=== PATIENT | female | born 1990 | race Two or more races ===

== ENCOUNTER 2017-09-13 13:02 | Emergency (ER) | payer OTHER ==
[~2017-09-13] VITALS: Ht 160 cm; Wt 65.8 kg
[2017-09-13 13:02] VITALS: BP 112/78
[2017-09-13] MEDS ORDERED: IBUPROFEN 400 MG TABLET ONE (13:45)
[2017-09-13] MEDS ORDERED: IBUPROFEN 400 MG TABLET PO ONE (14:00)
== END 2017-09-13 13:53 | disposition home or self-care (01) ==
LOC: ER 13:06
DX: R05 Cough (principal); J02.9 Acute pharyngitis, unspecified
CPT/HCPCS: 87880; 99284; A4606; Z7610; 86403-TC

== ENCOUNTER 2018-02-11 14:40 | Emergency (ER) | payer OTHER ==
[~2018-02-11] VITALS: Ht 160 cm; Wt 61.2 kg
[2018-02-11 14:46] VITALS: BP 119/74
== END 2018-02-11 15:58 | disposition home or self-care (01) ==
LOC: ER 14:42
DX: B35.4 Tinea corporis (principal); R09.82 Postnasal drip
CPT/HCPCS: 84703-TC; A4606; Z7610

== ENCOUNTER 2018-02-15 15:09 | Emergency (ER) | payer OTHER ==
[~2018-02-15] VITALS: Ht 160 cm; Wt 61.2 kg
[2018-02-15 15:09] VITALS: BP 123/65
== END 2018-02-15 16:20 | disposition home or self-care (01) ==
LOC: ER 15:10
DX: J02.9 Acute pharyngitis, unspecified (principal)
CPT/HCPCS: A4606; Z7610

== ENCOUNTER 2018-03-14 14:38 | Emergency (ER) | payer OTHER ==
[~2018-03-14] VITALS: Ht 160 cm; Wt 63.5 kg
[2018-03-14 14:38] VITALS: BP 120/70
== END 2018-03-14 15:30 | disposition home or self-care (01) ==
LOC: ER 14:39
DX: B35.4 Tinea corporis (principal)
CPT/HCPCS: 99283; A4606; Z7610

== ENCOUNTER 2018-05-31 17:52 | Emergency (ER) | payer OTHER ==
--- NOTE | 2018-05-31 19:05 | NUR ---
CALLED PATIENTS NAME THREE TIMES, NO RESPONSE. WILL TRY AGAIN AT A LATER TIME
--- NOTE | 2018-05-31 20:17 | NUR ---
CALLED PATIENTS NAME THREE TIMES, NO RESPONSE. WILL TRY AGAIN AT A LATER TIME
== END 2018-05-31 20:18 | disposition left against medical advice (07) ==
LOC: ER 17:53
DX: Z53.21 Procedure and treatment not carried out due to patient leaving prior to being seen by health care provider (principal)

== ENCOUNTER 2019-05-07 12:13 | Emergency (ER) | payer OTHER ==
[~2019-05-07] VITALS: Ht 160 cm; Wt 61.2 kg
[2019-05-07 12:31] VITALS: BP 118/71
== END 2019-05-07 13:24 | disposition home or self-care (01) ==
LOC: ER 12:13
DX: J01.90 Acute sinusitis, unspecified (principal); J30.9 Allergic rhinitis, unspecified; J06.9 Acute upper respiratory infection, unspecified

== ENCOUNTER 2021-06-18 20:12 | Emergency (ER) | payer OTHER ==
[~2021-06-18] VITALS: Ht 160 cm; Wt 61.2 kg
[2021-06-18 21:16] VITALS: BP 134/85
[2021-06-18] MEDS ORDERED: IBUP-1955 PO (21:39)
[2021-06-18] MEDS ORDERED: CYCL5TAB PO (21:39)
[2021-06-18] MEDS ORDERED: IBUPROFEN 600 MG TABLET ONE (21:49)
[2021-06-18] MEDS ORDERED: IBUPROFEN 600 MG TABLET PO ONE (22:00)
== END 2021-06-18 21:57 | disposition home or self-care (01) ==
LOC: ER 20:12
DX: S13.4XXA Sprain of ligaments of cervical spine, initial encounter (principal); S16.1XXA Strain of muscle, fascia and tendon at neck level, initial encounter; S39.012A Strain of muscle, fascia and tendon of lower back, initial encounter; V49.49XA Driver injured in collision with other motor vehicles in traffic accident, initial encounter; Y93.89 Activity, other specified; Y92.413 State road as the place of occurrence of the external cause; Y99.8 Other external cause status